=== PATIENT | female | born 1990 | race African-American/Black ===

== ENCOUNTER 2023-07-15 11:37 | Emergency (ER) | payer OTHER, SELFPAY ==
[2023-07-15 12:01] VITALS: BP 126/74; PULSE 99; RESP 20; TEMP 36.7; O2SAT 100
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
== END 2023-07-15 12:20 | disposition home or self-care (01) ==
LOC: ANHED 12:15
PROVIDERS: Emergency Provider Emergency Medicine
DX: S16.1XXA Strain of muscle, fascia and tendon at neck level, initial encounter (principal); V48.5XXA Car driver injured in noncollision transport accident in traffic accident, initial encounter
CPT/HCPCS: 99283